=== PATIENT | male | born 1950 | race Caucasian/White ===

== ENCOUNTER 2016-09-03 10:13 | Day surgery (SDC) | payer MEDICARE, OTHER ==
[2016-08-31 13:14] LABS: ADD UMIC YES; URINE BILIRUBIN (Dip) NEGATIVE (NEGATIVE); URINE BLOOD (Dip) NEGATIVE (NEGATIVE); URINE COLOR LT. YELLOW (YELLOW); URINE GLUCOSE (Dip) NEGATIVE (NEGATIVE); URINE KETONES (Dip) NEGATIVE (NEGATIVE); URINE LEUKOCYTE ESTERASE (Dip) TRACE (NEGATIVE); URINE NITRITE (Dip) NEGATIVE (NEGATIVE); URINE TOTAL PROTEIN (Dip) NEGATIVE (NEGATIVE); URINE UROBILINOGEN (Dip) 0.2 E.U./dL (0.1-1.0)
[2016-08-31 13:31] LABS: URINE RBCS NONE SEEN /HPF (0)
[2016-09-03] VITALS (14 sets, daily range): BP systolic 135–163; BP diastolic 67–93; PULSE 64–92; RESP 17–19; Ht 172.7 cm; Wt 68.8 kg
[~2016-09-03] VITALS: Ht 172.7 cm; Wt 68.8 kg
[~2016-09-03 10:13] MED LIST: CEFAZOLIN 1 GM INJ ONE; CEFAZOLIN 2GM/50 ML (PMX) 50 ML X1 BEFORE INCISION IVPB ONE; CELECOXIB 400 MG PO X1 DOSE PO ONE; LACTATED RINGER'S 1,000 ML IV SCH; PREGABALIN 300 MG PO X1 PO ONE; oxyCODONE (CR) 10 MG TAB [oxyCONTIN] X1 DOSE PO ONE; traMADOL 50 MG TAB X 1 DOSE PO ONE
--- NOTE | 2016-09-03 11:05 | HPN ---
Date/Time of Note Date/Time of Note DATE: 09/03/16 TIME: 11:04 Interval H&P Admission Note Pt. seen H&P reviewed: No system changes No change from H&P by Dr. Tyron Hammond on 08/27/16 DEVIKA GAITAN MD Sep 03, 2016 11:05
[2016-09-03] MEDS ORDERED: DEXL60CA2 PO (11:55)
[2016-09-03] MEDS ORDERED: SYN1 PO (11:58)
[2016-09-03] MEDS ORDERED: TAMS-14 PO (11:58)
[2016-09-03] MEDS ORDERED: LORA-444 PO (11:58)
[2016-09-03] MEDS ORDERED: AZEL23SP NASAL (11:58)
[2016-09-03] MEDS ORDERED: ATOR10TA65 PO (11:59)
[2016-09-03] MEDS ORDERED: DOXE6TAB3 PO (12:00)
[2016-09-03] MEDS ORDERED: VALS40TA2 PO (12:00)
[2016-09-03] MEDS ORDERED: GABA300C16 PO (12:00)
[2016-09-03] MEDS ORDERED: AMIT10TA6 PO (12:00)
[2016-09-03 12:02] LABS: INR 0.94; PROTIME 12.6 Sec (12.2-14.2)
[2016-09-03 12:03] LABS: PARTIAL THROMBOPLASTIN TIME 25.4 Sec (25.0-35.0)
[2016-09-03] MEDS ORDERED: LIDOCAINE 1%/EPI 30 ML INJ ONE (12:40)
[2016-09-03] MEDS ORDERED: ROPIVACAINE 0.5 % 30 ML VIAL ONE (12:40)
[2016-09-03] MEDS ORDERED: KETOROLAC 30 MG INJ ONE ×2 (12:40→13:32)
[2016-09-03] MEDS ORDERED: morphine SULFATE/PF (10 MG/10 ML) INJ ONE (12:40)
[2016-09-03] MEDS ORDERED: FENTAnyl 50 MCG/ML VIAL ONE (12:52)
[2016-09-03] MEDS ORDERED: MIDAZOLAM 1 MG/ML 2 ML INJ ONE (12:52)
[2016-09-03] MEDS ORDERED: ONDANSETRON 4 MG INJ IV PRN (13:30)
[2016-09-03] MEDS ORDERED: MEPERIDINE 25 MG INJ IV PRN (13:30)
[2016-09-03] MEDS ORDERED: DIPHENHYDRAMINE 50 MG INJ IV PRN (13:30)
[2016-09-03] MEDS ORDERED: FENTAnyl 50 MCG/ML VIAL IV PRN ×2 (13:30)
[2016-09-03] MEDS ORDERED: PROPOFOL 20 ML ONE (13:49)
[2016-09-03] MEDS ORDERED: ROCURONIUM 50 MG INJ ONE (13:49)
[2016-09-03] MEDS ORDERED: LIDOCAINE 2% (SDV) 5 ML INJ ONE (13:49)
[2016-09-03] MEDS ORDERED: NEOSTIGMINE 3 MG/3 ML SYRINGE ONE (13:50)
[2016-09-03] MEDS ORDERED: GLYCOPYRROLATE 0.4 MG INJ ONE (13:50)
[2016-09-03] MEDS ORDERED: ONDANSETRON 4 MG INJ ONE (13:50)
[2016-09-03] MEDS ORDERED: LORAZEPAM 1 MG TAB PO PRN (14:00)
--- NOTE | 2016-09-03 14:03 | OPPN ---
Date/Time of Note Date/Time of Note DATE: 09/03/16 TIME: 14:02 Operative/Procedure Note Dictatin # [id number] Pre-Operative Diagnosis Right Knee PHMM Tear Post-Operative Diagnosis Same Procedure Right Knee A/S and Partial MM Surgeon: DEVIKA GAITAN MD Anesthesiologist: FRANCISCO J FRIED MD Findings PHMM Tear Blood Usage/Administration None Implants/Grafts: Not applicable Estimated blood loss: minimal Drains: Not applicable Specimens: Not Applicable Complications: None Anesthesia type: general DEVIKA GAITAN MD Sep 03, 2016 14:03
--- NOTE | 2016-09-03 14:19 | OPR ---
DATE OF OPERATION: 09/03/2016 PREOPERATIVE DIAGNOSIS: Right knee medial meniscus tear. POSTOPERATIVE DIAGNOSIS: Right knee medial meniscus tear. PROCEDURE: Right knee arthroscopy and partial medial meniscectomy. SURGEON: Devika Mcgraw MD MANAGER BUSINESS: None. ANESTHESIA: General endotracheal intubation. ANESTHESIOLOGIST: Dr. Osei. TOURNIQUET TIME: 0 minutes. ESTIMATED BLOOD LOSS: Scant. INTRAVENOUS FLUIDS: 900 mL crystalloid. SPECIMENS: None. DRAINS: None. COMPLICATIONS: None. DISPOSITION: Patient tolerated the procedure well and was taken to the recovery room in stable condition. INDICATIONS: The patient is a 65-year-old gentleman who has had pain in the medial aspect of his right knee with mechanical symptoms of catching and popping. An MRI was obtained showing a medial meniscus tear. I felt he would benefit from a knee arthroscopy and partial medial meniscectomy. The risks, benefits, alternatives of the procedure were explained in detail to the patient. I explained the risks to include but not be limited to bleeding, infection, pain, stiffness, neurovascular injury, possible numbness, weakness, and/or paralysis anywhere from the knee down to the toes, fracture, ligamentous injury, need for additional future surgery, including possible total knee arthroplasty, wound healing problems, blood clots, pulmonary embolism, and anesthetic complications such as heart attack, stroke, GI bleed, pneumonia, and/ or . Ample time was allowed for the patient to ask questions, all of which were addressed and answered. He understood the risks involved and wished to proceed. Informed consent was signed prior to the procedure. DESCRIPTION OF PROCEDURE: The right knee was initialed with a marking pen in the preoperative holding area to identify the correct operative site. The patient was brought to the operating room and transferred from the [facility] to the operating table where he was placed in the supine position. He was anesthetized and intubated. Time-out was performed to confirm the right side was the correct operative site. He was given 2 grams of intravenous Ancef within 1 hour prior to the incision. A tourniquet was placed on the right proximal thigh. The superolateral aspect of the right knee was prepped with Betadine and injected 30 mL of 0.5% ropivacaine into the knee joint. The entire right knee and lower extremity were prepped and draped in usual sterile fashion. Standard arthroscopic portal incisions were made, one inferolateral and one inferomedial. The arthroscope was introduced into the inferolateral portal, and the arthroscopy initiated. The suprapatellar pouch was free of loose bodies and synovitis. The undersurface of the patella was inspected and had some grade III chondromalacia. The medial and lateral gutters were inspected and free of loose bodies and synovitis. The medial compartment was then inspected, and there was an extensive tear of the medial meniscus from the posterior horn to the body and extending all the way to the root. This was debrided back to a stable edge with a combination of iris, biters, and Arthrocare wand. It was probed and was stable. The posterior root was stable. The medial tibial plateau had some diffuse grade II chondromalacia. The lateral aspect of the medial femoral condyle had diffuse grade III chondromalacia. The inner trochlear notch was inspected, and ACL and PCL were in normal position with no evidence of tearing. The lateral compartment was inspected, and the lateral meniscus was intact. The lateral femoral condyle and lateral tibial plateau looked healthy, with no degenerative changes. At this point, the arthroscope was completed. The knee was irrigated through the arthroscope until the egress of fluid was free of meniscal fragments and blood. The instruments were removed. The knee was injected with a mixture of 0.5% ropivacaine, 4 mg Duramorph, and 30 mg Toradol. The incisions were closed with interrupted 3-0 Monocryl and 3-0 Prolene in a vertical mattress fashion. Skin edges were sealed with Dermabond. The wounds were covered with Adaptic, 4 x 4s , and wrapped with sterile cast padding and Mariano wrap. The patient was awakened, extubated, and taken to the recovery room in stable condition. Dictated By: DEVIKA MORGAN/LEONOR Conf#: [id number] DID#: [id number] JOY
[2016-09-03] MEDS ORDERED: GABAPENTIN 300 MG CAP PO SCH (21:00)
[2016-09-03] MEDS ORDERED: TAMSULOSIN (SR) 0.4 MG CAP PO SCH (21:00)
[2016-09-03] MEDS ORDERED: AMITRIPTYLINE 10 MG TAB PO SCH (21:00)
[2016-09-03] MEDS ORDERED: ATORVASTATIN 10 MG TAB PO SCH (21:00)
[2016-09-04] MEDS ORDERED: LEVOTHYROXINE 50 MCG TAB PO SCH (07:00)
[2016-09-04] MEDS ORDERED: VALSARTAN 80 MG TAB PO SCH (09:00)
== END 2016-09-03 16:05 | disposition home or self-care (01) ==
LOC: SDS 10:13
PROVIDERS: ATTEND Orthopaedic Surgery
DX: M23.221 Derangement of posterior horn of medial meniscus due to old tear or injury, right knee (principal); I10 Essential (primary) hypertension; E03.9 Hypothyroidism, unspecified
CPT/HCPCS: 29881; 81001; 85610; 85730; 86850; 86900; 86901; 87081; J0690; J1885; J2250; J2274; J2405; J2795; J3010; 81003; J2710